=== PATIENT | male | born 1975 | race Caucasian/White ===

== ENCOUNTER 2023-01-03 10:43 | Outpatient (CLI) | payer OTHER, SELFPAY ==
--- NOTE | ~2023-01-03 | CT_ITS ---
EXAMINATION: CT sinus wo con DATE: 01/03/2023 11:03 INDICATION: Chronic pansinusitis TECHNIQUE: Computed tomography (CT) of the paranasal sinuses was performed without intravenous contra st. The dose-length product was 266.74 mGy-cm. Automated exposure control and iterative reconstructio n technique were employed. COMPARISON: None FINDINGS: There is minimal mucosal thickening of the maxillary, ethmoid, sphenoid and left frontal si nus. Small right mastoid effusion. There is a left-sided ryder bullosa. The ostiomeatal units are pa tent. Leftward nasal septal deviation. No mucoperiosteal reaction. IMPRESSION: 1. Mild sinus disease. Reviewed, dictated and finalized at location B. IMPRESSION: 1. Mild sinus disease.
== END 2023-01-03 10:44 ==
LOC: MICIMG 10:51
PROVIDERS: PCP Otolaryngology; Visit Provider Otolaryngology
DX: J32.4 Chronic pansinusitis (principal)
CPT/HCPCS: 70486